=== PATIENT | male | born 1960 | race Caucasian/White ===

== ENCOUNTER 2024-05-06 14:22 | Emergency (ER) | payer MEDICARE ==
[2024-05-06] MEDS ORDERED: Prochlorperazine 10 MG/2 ML VIAL ONE (15:25)
[2024-05-06] MEDS ORDERED: Labetalol HCl 100 MG/20 ML VIAL ONE (15:26)
[2024-05-06] MEDS ORDERED: Acetaminophen 325 MG TAB ONE (15:26)
[2024-05-06 16:22] LABS: Anion Gap 14 mmol/L (10-20); BUN (Urea Nitrogen) 21 mg/dL (8.4-25.7); Calc. Creatinine Clearance 0 mL/min (70-130); Carbon Dioxide 25 mmol/L (23-31); Chloride 104 mmol/L (98-107); Potassium 3.4 mmol/L (3.5-5.1); Sodium 140 mmol/L (136-145)
[2024-05-06 16:23] LABS: ALT (SGPT) 19 U/L (8-55); AST (SGOT) 14 U/L (5-34); Albumin 4.1 g/dL (3.4-4.8); Alkaline Phosphatase 55 U/L (40-110); Bilirubin, Total 0.8 mg/dL (0.2-1.2); Calcium 9.1 mg/dL (7.8-10.44); Estimated GFR 96; Globulin 3.4 g/dL (2.4-3.5); Glucose 128 mg/dL (80-115); Protein, Total 7.5 g/dL (5.8-8.1)
[2024-05-06 16:36] LABS: #Basophils 0.04 10x3/uL (0.0-0.2); #Eosinophils 0.03 10x3/uL (0.0-0.5); #Monocytes 0.61 10x3/uL (0.0-1.1); #Neutrophils 7.75 10x3/uL (1.5-8.4); %Basophils 0.4 % (0.0-2.0); %Eosinophils 0.3 % (0.0-6.0); %Lymphocytes 12.9 % (18.0-47.0); %Monocytes 6.3 % (0.0-10.0); %Neutrophils 79.7 % (40.0-75.0); Hematocrit 36.4 % (38.8-50.0); Hemoglobin 13.6 g/dL (13.5-17.5); Mean Corpuscular HGB CONC 37.4 g/dL (32.0-36.0); Mean Corpuscular Hemoglobin 33.7 pg (27.0-33.0); Mean Corpuscular Volume 90.3 fL (81.2-95.1); Mean Platelet Volume 9.8 fL (7.4-10.4); Platelet Count 246 10x3/uL (150-450); RBC Distribution Width 12.2 % (11.5-14.5); Red Blood Cell (RBC) Count 4.03 10x6/uL (4.32-5.72); White Blood Cell (WBC) Count 9.7 10x3/uL (3.5-10.5)
[2024-05-06] MEDS ORDERED: Dexamethasone 10 MG/ML VIAL ONE (16:51)
[2024-05-06 17:05] LABS: PTT 25.9 sec (22.0-33.0); Prothrombin Time 10.8 sec (9.5-12.1)
== END 2024-05-06 21:04 | disposition short-term general hospital (02) ==
LOC: CSHERS 14:22
DX: G93.89 Other specified disorders of brain (principal); I10 Essential (primary) hypertension; H53.8 Other visual disturbances
CPT/HCPCS: 36416; 70450; 80053; 85025; 85610; 85730; J0780; J1100

== ENCOUNTER 2024-05-19 23:59 | Emergency (ER) | payer MEDICARE ==
[2024-05-20] MEDS ORDERED: Ziprasidone 20 MG VIAL ONE (00:26)
[2024-05-20] MEDS ORDERED: Sterile Water 10 ML ONE (00:27)
[2024-05-20 00:50] LABS: Hemoglobin 17.1 g/dL (13.5-17.5); MDiff Complete? YES; Mean Corpuscular HGB CONC 36.4 g/dL (32.0-36.0); Mean Corpuscular Hemoglobin 32.9 pg (27.0-33.0); Mean Corpuscular Volume 90.6 fL (81.2-95.1); Mean Platelet Volume 10.1 fL (7.4-10.4); Platelet Count 279 10x3/uL (150-450); RBC Distribution Width 11.5 % (11.5-14.5); Red Blood Cell (RBC) Count 5.19 10x6/uL (4.32-5.72); White Blood Cell (WBC) Count 29.9 10x3/uL (3.5-10.5)
[2024-05-20 00:58] LABS: INR-International Normal Ratio 1.2; PTT 24.4 sec (22.0-33.0); Prothrombin Time 12.9 sec (9.5-12.1)
[2024-05-20] MEDS ORDERED: Lorazepam 2 MG/ML VIAL ONE (01:01)
[2024-05-20 01:05] LABS: ALT (SGPT) 28 U/L (8-55); AST (SGOT) 11 U/L (5-34); Albumin 3.3 g/dL (3.4-4.8); Alkaline Phosphatase 55 U/L (40-110); Anion Gap 27 mmol/L (10-20); Bilirubin, Total 1.7 mg/dL (0.2-1.2); CK (CPK) 272 U/L (30-200); Calc. Creatinine Clearance 0 mL/min (70-130); Calcium 8.8 mg/dL (7.8-10.44); Carbon Dioxide 15 mmol/L (23-31); Chloride 100 mmol/L (98-107); Estimated GFR 17; Globulin 3.5 g/dL (2.4-3.5); Magnesium 3.4 mg/dL (1.6-2.6); Potassium 4.6 mmol/L (3.5-5.1); Protein, Total 6.8 g/dL (5.8-8.1); Sodium 137 mmol/L (136-145)
[2024-05-20 01:12] LABS: Troponin I 0.101 ng/mL (< 0.028)
[2024-05-20 01:15] LABS: BUN (Urea Nitrogen) 119 mg/dL (8.4-25.7)
[2024-05-20 01:18] LABS: Critical Call Chemistry ERS.ABR@0116; Glucose 660 mg/dL (80-115)
[2024-05-20 01:39] LABS: Acetaminophen Less than 10 mcg/mL (Less than 10); Alcohol Less than 10.0 mg/dL (Less than 10); Salicylate Less than 8.0 mg/dL (Less than 8.0)
[2024-05-20 01:57] LABS: Bilirubin Neg (Negative); Blood, Urine 10 (Negative); Clarity Clear (Clear); Glucose, Urine (Dipstick) 250 mg/dL (Negative); Ketone, Urine Negative (Negative); Leukocyte Negative (Negative); Nitrite Negative (Negative); Protein, Urine (Dipstick) 15 mg/dl (Neg-Trace); Urobilinogen Normal mg/dL (Less than 2)
[2024-05-20] MEDS ORDERED: Piperacillin/Tazobactam 3.375 GM VIAL ONE (02:10)
[2024-05-20 02:29] LABS: Amphetamine Not Detected (NotDetected); Barbiturates Screen Not Detected (NotDetected); Benzodiazepine Screen Not Detected (NotDetected); Cocaine Metabolite Screen Not Detected (NotDetected); Methadone Not Detected (NotDetected); Methamphetamine Not Detected (NotDetected); Opiate Screen Not Detected (NotDetected); Oxycodone Screen Not Detected (NotDetected); Phencyclidine (PCP) Not Detected (NotDetected); THC/Cannabinoid Screen Not Detected (NotDetected); Tricyclic Screen Not Detected (NotDetected)
[2024-05-20 02:40] LABS: Band 1 % (5-11); Lymphocytes 1 % (21-51); Monocytes 7 % (0-10); Neutrophil 91 % (42-75)
[2024-05-20 02:41] LABS: RBC Morph Comment Within Normal Limits
[2024-05-20 02:43] LABS: Platelet Adequacy Comment Appears Adequate
[2024-05-20] MEDS ORDERED: Dexamethasone 10 MG/ML VIAL ONE (02:45)
[2024-05-20 02:54] LABS: Bacteria/HPF 2+ HPF (None Seen); CAUTI Indications for Culture Alt mental st,lethar; RBC/HPF 0-3 HPF (0-3); Squamous Epithelial 0-3 HPF (0-3); Transitional Epithelial 0-3 HPF (None Seen); WBC/HPF 0-3 HPF (0-3)
[2024-05-20 02:55] LABS: Urine Culture Reflex No No
[2024-05-20] MEDS ORDERED: Insulin Regular, Human 100 UNIT/ML 10 ML VIAL ONE (03:08)
[2024-05-20 04:08] LABS: Anion Gap 14 mmol/L (10-20); BUN (Urea Nitrogen) 107 mg/dL (8.4-25.7); Calc. Creatinine Clearance 0 mL/min (70-130); Calcium 5.9 mg/dL (7.8-10.44); Carbon Dioxide 14 mmol/L (23-31); Chloride 115 mmol/L (98-107); Critical Call Chemistry NUR.BS7@0407; Estimated GFR 28; Glucose 480 mg/dL (80-115); Potassium 3.1 mmol/L (3.5-5.1); Sodium 140 mmol/L (136-145)
[2024-05-20] MEDS ORDERED: VANCOMYCIN 1.75 GM/350 ML BAG 1.75 GM in Premix 1 BAG IVPB SCH (04:15)
[2024-05-20] MEDS ORDERED: CALCIUM GLUC 1 GM/NS 50 ML 1 GM in Premix 1 BAG IVPB SCH (04:30)
[2024-05-20] MEDS ORDERED: Potassium Chloride 20 MEQ (100 mL) BAG ONE (05:31)
[2024-05-20 12:07] LABS: Actual Bicarbonate (HCO3a) 13.6 mEq/L (22-28); Analyzer IN Cardio CS ER; Base Excess (BEa) -7.4 mEq/L (-2.0 to +3.0); Calcium, Ionized (arterial) 1.05 mmol/L (1.12-1.30); Carboxyhemoglobin (COHb) 0.3 gm% (0.0-3.0); Hematocrit-ABG 49 % (42.0-52.0); Hemoglobin (Hb) 16.7 g/dL (14.0-18.0); O2 Tension (PaO2), arterial 134.2 mmHg (> 80.0); Potassium - ABG Lab 3.59 mmol/L (3.70-5.30); Puncture Site Right Radial artery
== END 2024-05-20 09:51 | disposition short-term general hospital (02) ==
LOC: CSHERS 23:59
DX: G93.6 Cerebral edema (principal); N17.9 Acute kidney failure, unspecified; E87.20 Acidosis, unspecified; R41.82 Altered mental status, unspecified; I10 Essential (primary) hypertension; Z79.899 Other long term (current) drug therapy
CPT/HCPCS: 36600; 51701; 70450; 71045; 74176; 80048; 80306; 80307; 81001; 82010; 82550; 82805; 82962; 83605; 83735; 83930; 84484; 85610; 85730; 87040; 96361; 96365; 96366; 96367; 96372; 96375; 99285; J0613; J1100; J1815; J2060; J2543; J3370; J3480; J3486; 36415; 36416; 80053; 84443; 85025